=== PATIENT | male | born 1950 | race Caucasian/White ===

== ENCOUNTER 2024-06-09 16:17 | Outpatient (RCR) | payer MEDICARE, OTHER, SELFPAY | END 2024-08-12 15:46 | disposition home or self-care (01) | LOC: PT 16:17 | PROVIDERS: Family Provider Internal Medicine; PCP Internal Medicine | DX: I95.1 Orthostatic hypotension (principal); Z98.890 Other specified postprocedural states; R29.6 Repeated falls | CPT/HCPCS: 97110; 97112; 97162; 97530 ==

== ENCOUNTER 2024-06-20 08:54 | Outpatient (OUT) | payer MEDICARE, OTHER, SELFPAY ==
[2024-06-20 09:42] LABS: Albumin Level 3.4 g/dL (3.4-5.0); Anion Gap 12.6; BUN Creatinine Ratio 26.7; Calcium 9.3 mg/dL (8.5-10.1); Carbon Dioxide 28.5 mmol/L (21.0-32.0); Chloride 101 mmol/L (98-107); Estimated GFR (African America >60 (>=60); Estimated GFR (Non-African Ame >60 (>=60); Glucose 129 mg/dL (74-106); Phosphorus 3.2 mg/dL (2.6-4.7); Potassium 5.1 mmol/L (3.5-5.1); Sodium 137 mmol/L (136-145)
== END 2024-06-20 08:55 | disposition home or self-care (01) ==
LOC: LAB 08:56
PROVIDERS: Family Provider Internal Medicine; PCP Internal Medicine; Visit Provider Internal Medicine
DX: E27.49 Other adrenocortical insufficiency (principal)
CPT/HCPCS: 36415; 80069

== ENCOUNTER 2024-06-20 09:00 | Outpatient (OUT) | payer MEDICARE, OTHER, SELFPAY ==
[2024-06-20 10:23] LABS: Prostate Specific Antigen Dx 0.79 ng/mL (<=4.00)
== END 2024-06-20 09:01 | disposition home or self-care (01) ==
LOC: LAB 09:02
PROVIDERS: Family Provider Internal Medicine; PCP Internal Medicine; Visit Provider Urology
DX: E27.49 Other adrenocortical insufficiency (principal); N40.1 Benign prostatic hyperplasia with lower urinary tract symptoms
CPT/HCPCS: 36415; 80069; 84153

== ENCOUNTER 2024-07-17 10:21 | Outpatient (OUT) | payer MEDICARE, OTHER, SELFPAY ==
[2024-07-17 12:09] LABS: Chol HDL Ratio 1.6; Cholesterol 85 mg/dL (<=200); Creatine Kinase 29 U/L (39-308); HDL Cholesterol 52 mg/dL (40-60); LDL Cholesterol Calculated 18.4 mg/dL; Triglycerides 73 mg/dL (<=150); VLDL CHOLESTEROL 14.6 mg/dL
== END 2024-07-17 10:22 | disposition home or self-care (01) ==
LOC: LAB 10:21
PROVIDERS: Family Provider Internal Medicine; PCP Internal Medicine; Visit Provider Nurse Practitioner
DX: E78.2 Mixed hyperlipidemia (principal); I25.10 Atherosclerotic heart disease of native coronary artery without angina pectoris
CPT/HCPCS: 36415; 80061; 82550

== ENCOUNTER 2024-08-29 09:01 | Outpatient (OUT) | payer MEDICARE, OTHER, SELFPAY ==
--- NOTE | 2024-08-29 09:09 | CA_ITS ---
Patient Name: GILBERTO SORIA MR#: [id number] : 1950 Exam Date: 08/29/2024 Ordering Doctor: Non-Staff Physician ECHOCARDIOGRAM REPORT PROCEDURE: CA ECHO DOPPLER COMPLETE INDICATIONS: CVA, PAD, cardiac stent, diabetes COMPARISON: None. DESCRIPTION: COMPLETE ECHOCARDIOGRAM Real-time transthoracic echocardiography with 2D, M-mode, spectral and color flow Doppler performed. QUALITY: Technical quality was good. LEFT VENTRICLE: Normal chamber size. Mild concentric left ventricular hypertrophy. LV EF: Global left ventricular systolic function is hyperdynamic; visually estimated ejection fraction is 70 to 75%. No wall motion abnormalities. DIASTOLIC: Diastolic function is indeterminate. ATRIAL SEPTUM: Intact atrial septum. Agitated saline contrast does not reveal an intra-cardiac shunt. LEFT ATRIUM: Normal chamber size. RIGHT ATRIUM: Normal chamber size. RIGHT VENTRICLE: Normal chamber size. Normal right ventricular systolic function. TRICUSPID VALVE: Normal mobility and thickness. No stenosis with trivial regurgitation. Doppler studies reveal mildly (35-45) elevated right sided pressures. RVSP 36 mmHg MITRAL VALVE: Normal mobility and thickness. No evidence of mitral valve stenosis. There is no mitral annular calcification. No mitral regurgitation. AORTIC VALVE: Normal trileaflet appearance. Mildly calcified aortic valve. Normal leaflet mobility. No evidence of aortic valve stenosis. Trivial aortic regurgitation. AORTIC ROOT: Normal diameter and appearance. PULMONIC VALVE: Normal thickness and mobility. No stenosis. Trivial regurgitation. PERICARDIUM: No evidence of pericardial effusion. IVC: Collapses with inspirations. IVC is normal in size. PLEURA: CONCLUSION: 1. Global left ventricular systolic function is hyperdynamic; visually estimated ejection fraction is 70 to 75% 2. Normal right ventricular size and systolic function 3. Mild left ventricular hypertrophy 4. No significant valvular abnormalities 5. Agitated saline contrast does not reveal an intracardiac shunt Adult Echocardiography Procedure Report Left Ventricle LVEDD (3.7 - 5.6 cm): 4.73 cm LVESD (2.2 - 4.0 cm): 4.21 cm LVIVS thickness (0.6 - 1.2 cm): 1.38 cm LVPW thickness (0.5 - 1.0 cm): 1.20 cm e': 0.08 m/s E - e': 8.10 LVOT Max Gradient: 2.62 mm[Hg] LVOT Area (cm2): 0.81 m/s Peak Velocity (LVOT): 0.81 m/s Mean Velocity (LVOT): 0.54 m/s LVOT Diameter 2.22 cm Left Atrium LA Volume Index (2D A2C): 34.53 ml/m2 Left Atrium Systolic Dimension: 4.52 cm Mitral Valve MV E to A Ratio: 0.77 Mitral Valve A-Wave Peak Velocity: 0.83 m/s Mitral Valve E-Wave Peak Velocity: 0.64 m/s Right Ventricle Aorta AO Root Diam: 3.70 cm Aortic Valve AoV Area (Peak Hitesh): 2.67 cm2, 2.67 cm2 AoV Area (VTI): 2.82 cm2, 2.82 cm2 Peak Velocity(Antegrade Flow): 1.17 m/s Peak Gradient(Antegrade Flow): 5.48 mm[Hg] Mean Velocity(Antegrade Flow): 0.76 m/s Mean Gradient(Antegrade Flow): 2.66 mm[Hg] Velocity Time Integral: 25.12 cm Tricuspid Valve Peak Velocity (Regurgitant Flow): 2.86 m/s Pulmonic Valve Mean Gradient: 2.39 mm[Hg] Mean Velocity: 0.72 m/s Peak Velocity: 1.14 m/s, 1.15 m/s Peak Gradient: 5.33 mm[Hg], 5.16 mm[Hg] Right Atrium Right Atrium Systolic Pressure: 68.27 ml, 68.27 ml Dictated by: My Hill M.D. on 08/29/2024 at 17:15 Approved by: My Hill M.D. on 08/29/2024 at 17:19
== END 2024-08-29 09:02 | disposition home or self-care (01) ==
LOC: CARD 09:02
PROVIDERS: Family Provider Internal Medicine; PCP Internal Medicine
DX: I63.20 Cerebral infarction due to unspecified occlusion or stenosis of unspecified precerebral arteries (principal); I63.412 Cerebral infarction due to embolism of left middle cerebral artery
CPT/HCPCS: 93306

== ENCOUNTER 2024-10-30 10:33 | Outpatient (RCR) | payer MEDICARE, OTHER, SELFPAY | END 2024-11-28 14:55 | disposition home or self-care (01) | LOC: PT 10:33 | PROVIDERS: Family Provider Internal Medicine; PCP Internal Medicine; Visit Provider Internal Medicine | DX: G90.3 Multi-system degeneration of the autonomic nervous system (principal); I63.512 Cerebral infarction due to unspecified occlusion or stenosis of left middle cerebral artery; I11.9 Hypertensive heart disease without heart failure; E11.51 Type 2 diabetes mellitus with diabetic peripheral angiopathy without gangrene; R26.2 Difficulty in walking, not elsewhere classified; Z91.81 History of falling | CPT/HCPCS: 97110; 97112; 97162; 97530 ==

== ENCOUNTER 2024-11-29 09:39 | Outpatient (RCR) | payer MEDICARE, OTHER, SELFPAY | END 2025-02-05 11:34 | disposition home or self-care (01) | LOC: PT 09:39 | PROVIDERS: Family Provider Internal Medicine; PCP Internal Medicine; Visit Provider Internal Medicine | DX: G90.3 Multi-system degeneration of the autonomic nervous system (principal); I63.512 Cerebral infarction due to unspecified occlusion or stenosis of left middle cerebral artery; I11.9 Hypertensive heart disease without heart failure; E11.51 Type 2 diabetes mellitus with diabetic peripheral angiopathy without gangrene; R26.2 Difficulty in walking, not elsewhere classified; Z91.81 History of falling | CPT/HCPCS: 97110; 97112; 97530 ==

== ENCOUNTER 2025-02-23 15:25 | Outpatient (RCR) | payer MEDICARE, OTHER, SELFPAY | END 2025-03-22 15:33 | disposition home or self-care (01) | LOC: PT 15:25 | PROVIDERS: Family Provider Internal Medicine; PCP Internal Medicine | DX: R26.81 Unsteadiness on feet (principal); Z86.73 Personal history of transient ischemic attack (TIA), and cerebral infarction without residual deficits; M48.062 Spinal stenosis, lumbar region with neurogenic claudication | CPT/HCPCS: 97012; 97110; 97112; 97140; 97162; 97530 ==

== ENCOUNTER 2025-03-26 14:18 | Outpatient (RCR) | payer MEDICARE, OTHER, SELFPAY | END 2025-04-17 15:35 | disposition home or self-care (01) | LOC: PT 14:18 | PROVIDERS: Family Provider Internal Medicine; PCP Internal Medicine; Visit Provider Podiatrist Foot & Ankle Surgery | DX: I73.89 Other specified peripheral vascular diseases (principal); E11.49 Type 2 diabetes mellitus with other diabetic neurological complication; G62.9 Polyneuropathy, unspecified | CPT/HCPCS: 97035; 97140; 97164 ==

== ENCOUNTER 2025-09-19 16:09 | Emergency (ER) | payer OTHER, MEDICARE, SELFPAY ==
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
== END 2025-09-19 19:08 | disposition expired ==
PROVIDERS: Emergency Provider Emergency Medicine; PCP Internal Medicine
DX: I46.9 Cardiac arrest, cause unspecified (principal)
CPT/HCPCS: 92950; 99285; J0169